=== PATIENT | male | born 1965 | race Caucasian/White ===

== ENCOUNTER 2016-04-19 15:04 | Emergency (ER) | payer OTHER | END 2016-04-19 16:51 | disposition home or self-care (01) | LOC: ED 15:04 | DX: G89.29 Other chronic pain (principal); M25.572 Pain in left ankle and joints of left foot; I10 Essential (primary) hypertension; B19.20 Unspecified viral hepatitis C without hepatic coma; F17.210 Nicotine dependence, cigarettes, uncomplicated ==